=== PATIENT | female | born 1995 | race Caucasian/White ===

== ENCOUNTER 2022-01-28 23:33 | Emergency (ER) | payer OTHER, SELFPAY ==
[2022-01-28 23:44] VITALS: BP 88/67; PULSE 118; RESP 16; TEMP 36.5; O2SAT 97
--- NOTE | 2022-01-29 00:18 | CRLHL7_ITS ---
For Patients: As a result of the Century Cures Act, medical imaging exams and procedure reports are released immediately into your electronic medical record. You may view this report before your referring provider. If you have questions, please contact your health care provider. Indication: Vomiting. Technique: Abdomen 3 view. Comparison: None. Findings/Impression: Bowel: Diffuse gaseous distension of large bowel loops. Haustral markings are evident. Findings concerning for volvulus, possibly cecal. Soft tissues: No sign of free air. No sign of soft tissue mass. No suspicious calcifications. Percutaneous gastrostomy tube projects over the left abdomen. Bones: Unremarkable for age. Dictated by Lee Ruiz MD @ 01/29/2022 1:31:01 AM (Electronically Signed)
[2022-01-29] MEDS: ONDANSETRON ODT 4 MG TAB PO (00:30)
--- NOTE | 2022-01-29 00:49 | CRLHL7_ITS ---
For Patients: As a result of the Century Cures Act, medical imaging exams and procedure reports are released immediately into your electronic medical record. You may view this report before your referring provider. If you have questions, please contact your health care provider. INDICATION: History of volvulus, vomiting TECHNIQUE: CT abdomen and pelvis without contrast. COMPARISON: [facility] January 29, 2022 FINDINGS: Lower chest: Unremarkable. Liver: Unremarkable. Spleen: Unremarkable. Pancreas: Unremarkable. Gallbladder and bile ducts: Unremarkable. Adrenal glands: Normal left adrenal gland. The right adrenal gland is not seen. Kidneys: Unremarkable. No kidney or ureteral stones and no hydronephrosis. GI tract: The colon is difficult to follow due to lack of intravenous or oral contrast. The colon measures up to 7.7 cm in diameter in the left upper quadrant. The appendix is normal. Small bowel loops in the lower abdomen appear decompressed. Gastric tube tubing is appropriate in position. Large amount of feces in the colon. Vascular structures: Unremarkable. Lymph nodes: Unremarkable. Miscellaneous: Unremarkable. No free air or significant free fluid. Pelvic Organs: 2.6 x 2.5 cm cyst in the right adnexa, likely physiologic. Bones: Scoliosis. IMPRESSION: Volvulus cannot be excluded with this exam due to lack of intravenous or oral contrast. There is no free air pneumatosis. Small bowel loops in the lower abdomen appear decompressed. Recommend surgical consultation. Please note that all CT scans at this facility use dose modulation, iterative reconstruction, and/or weight-based dosing when appropriate to reduce radiation dose to as low as reasonably achievable. Dictated by April Argueta MD @ 01/29/2022 2:15:29 AM (Electronically Signed)
[2022-01-29 00:56] LABS: Gastric Occult Blood* POSITIVE
--- NOTE | 2022-01-29 01:51 | ED.GENADULT ---
HPI - General Adult General Chief complaint: Nausea/Vomiting Stated complaint: throwing up black bile has feeding tube Time Seen by Provider: 01/29/22 00:17 Source: family and RN notes reviewed Mode of arrival: wheelchair Limitations: other History of Present Illness HPI narrative: 26-year-old woman presenting with her mother care provider to the emergency department with concern of unusual vomitus. 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 Mom notes her stomach, I believe indicating on imaging, to been rather distended since that time. Has been otherwise generally healthy. She is nonverbal. Yesterday was noted to be generally unwell having vomited some white ?curly? emesis a couple of times. Today seemed fine until shortly before arrival in the emergency department when had vomitus of what I see here is coffee-ground type emesis. This also was released from her G-tube. Otherwise generally just does not seem to feel well. Not clear to what degree of pain she might be experiencing. Normal bowel movement today. No fever. G-tube button was also noted to be changed last night. On the medications include MiraLax and Osmolite nutritional supplement. Generally can take some oral liquids. Related Data Home Medications Medication Instructions Recorded Confirmed nutritional supplements 0.06 ea 01/28/22 gram-1.2 kcal/mL oral liquid (Osmolite 1.2 Abebe) polyethylene glycol 3350 17 17 g feeding tube DAILY PRN 01/28/22 01/28/22 gram/dose oral powder (Miralax) Allergies Allergy/AdvReac Type Severity Reaction Status Date / Time paper tape Allergy Intermediate Rash Uncoded 01/28/22 23:59 Review of Systems Status of ROS: Reports: 6 or more systems reviewed and unremarkable except as noted in History and below [facility] Medical History Cerebral palsy Gastrostomy tube in place Microcephalus Volvulus of stomach Social History Smoking Status: Never smoker Second hand tobacco smoke exposure: Yes How often do you have a drink containing alcohol: never How often do you have six or more drinks on one occasion: Never AUDIT-C Alcohol total score: 0 Non-prescribed substance use: denies use Exam Narrative: Exam Narrative: Nonverbal. Slim. Seated in wheelchair. Hunched forward a little bit. Does not appear to be any distress. Thick eyeglasses. Oropharynx is moist Breathing easily. Lungs appear to be clear. Heart rate is tachycardic. Regular rhythm. Abdomen with hyperactive bowel sounds. Large midline abdominal scar. Groans in apparent discomfort to palpation in the left mid abdomen. Tympanitic. G-tube in place. Noninflamed. [place] bag with what looks to be clear emesis other than floating coffee grounds. Extremities are slim, without edema. Partially contracted. Blood pressure is a little bit low which I presume to be near baseline though I do not have prior for comparison. Nursing notes this was particularly difficult to obtain. Const: Vital Signs, click to edit/add: Vital Signs - 24 hr 01/28/22 23:44 01/29/22 02:15 Temperature 97.7 F Pulse Rate [Left P ulse Oximeter] 118 H 116 H Respiratory Rate 16 18 Blood Pressure [Le ft Upper Arm] 88/67 L 135/84 Pulse Oximetry 97 96 Oxygen Delivery Me thod Room Air Room Air Documenting provider has reviewed patient's vital signs: yes Course Course Hospital Course: I did order gastroccult testing which was indeed positive. Was noted by mom to be rather difficult blood/IV collection as well as urine. I think answer is going to be more in the stomach. Abdominal x-rays ordered which by my read shows distended loops of bowel with G-tube in place. Radiology suspecting cecal volvulus. Prior to this over-read I had requested a CT scan already. Pending this read now. Has not appear to be in need of intervention for pain. Seemed to be more discomfort also demonstrating nausea. Given Zofran, morphine, fluids. Consultations Consultation #1: Discussed with our surgeon on-call. Would be best served elsewhere for cares, understandably. Did actually speak with [facility] surgery provider given anticipated challenges of placement. Sympathetic to our placement challenges here but simply to old for further care with him. Vital Signs Vital signs: Initial Vital Signs Temperature 97.7 F 01/28/22 23:44 Temperature Source Temporal Artery Scan 01/28/22 23:44 Pulse Rate 118 H 01/28/22 23:44 Respiratory Rate 16 01/28/22 23:44 Blood Pressure 88/67 L 01/28/22 23:44 Blood Pressure Mean 74 01/28/22 23:44 Blood Pressure Position Sitting 01/28/22 23:44 Pulse Oximetry 97 01/28/22 23:44 Oxygen Delivery Method 01/28/22 23:44 Vital Signs Temperature 97.7 F 01/28/22 23:44 Pulse Rate 118 H 01/28/22 23:44 Respiratory Rate 16 01/28/22 23:44 Blood Pressure 88/67 L 01/28/22 23:44 Pulse Oximetry 97 01/28/22 23:44 Oxygen Delivery Method 01/28/22 23:44 Temperature 97.7 F 01/28/22 23:44 Pulse Rate 101 H 01/29/22 04:56 Respiratory Rate 16 01/29/22 04:56 Blood Pressure 97/62 01/29/22 04:56 Pulse Oximetry 97 01/29/22 04:56 Oxygen Delivery Method 01/29/22 04:56 Medical Decision Making Lab Data Lab results reviewed: Yes I reviewed the patient's lab results Labs: Lab Results 01/29/22 01/29/22 Range/Units 00:18 00:42 Gastric Fluid pH 2.0 Gastric Occult Blood POSITIVE SARS-CoV-2 (PCR) Negative SARS-CoV-2 (Negative) Imaging Data CT scan - abdomen: Attestation: I have reviewed the pertinent imaging results. Radiologist's impression: Final Report: INDICATION: History of volvulus, vomiting TECHNIQUE: CT abdomen and pelvis without contrast. COMPARISON: [facility] January 29, 2022 FINDINGS: Lower chest: Unremarkable. Liver: Unremarkable. Spleen: Unremarkable. Pancreas: Unremarkable. Gallbladder and bile ducts: Unremarkable. Adrenal glands: Normal left adrenal gland. The right adrenal gland is not seen. Kidneys: Unremarkable. No kidney or ureteral stones and no hydronephrosis. GI tract: The colon is difficult to follow due to lack of intravenous or oral contrast. The colon measures up to 7.7 cm in diameter in the left upper quadrant. The appendix is normal. Small bowel loops in the lower abdomen appear decompressed. Gastric tube tubing is appropriate in position. Large amount of feces in the colon. Vascular structures: Unremarkable. Lymph nodes: Unremarkable. Miscellaneous: Unremarkable. No free air or significant free fluid. Pelvic Organs: 2.6 x 2.5 cm cyst in the right adnexa, likely physiologic. Bones: Scoliosis. IMPRESSION: Volvulus cannot be excluded with this exam due to lack of intravenous or oral contrast. There is no free air pneumatosis. Small bowel loops in the lower abdomen appear decompressed. Recommend surgical consultation. Abdominal x-ray: Attestation: I have reviewed the pertinent imaging results. Radiologist's impression: Final Report: Indication: Vomiting. Technique: Abdomen 3 view. Comparison: None. Findings/Impression: Bowel: Diffuse gaseous distension of large bowel loops. Haustral markings are evident. Findings concerning for volvulus, possibly cecal. Soft tissues: No sign of free air. No sign of soft tissue mass. No suspicious calcifications. Percutaneous gastrostomy tube projects over the left abdomen. Bones: Unremarkable for age. Discharge Plan Discharge Clinical Impression: Cecal volvulus, Abdominal pain Patient Disposition: Home w/ Parent or Adult Additional Instructions: [place] [facility] [place] We spoke with Dr. Galan who is accepting there. [place] assisted us on the phone. Prescriptions: No Action Osmolite 1.2 Abebe 0.06 gram-1.2 kcal/mL liquid polyethylene glycol 3350 [Miralax] 17 gram/dose powder 17 g feeding tube DAILY PRN Follow Up/Referrals: Provider,Not a Local [Primary Care Provider] - Stand Alone Forms: [facility] Info Instructions
[2022-01-29 01:59] LABS: SARS PCR* Negative SARS-CoV-2 (Negative)
[2022-01-29 02:15] VITALS: BP 135/84; PULSE 116; RESP 18; O2SAT 96
[2022-01-29] MEDS: MORPHINE 4 MG/ML INJ IVP (04:30)
[2022-01-29] MEDS: 0.9 % SODIUM CHLORIDE 500 ML 500 ML 6000 ML IV (04:30)
[2022-01-29] MEDS: ONDANSETRON 2 MG/ML inj 4 MG IVP (04:31)
[2022-01-29 04:56] VITALS: BP 97/62; PULSE 101; RESP 16; O2SAT 97
--- NOTE | 2022-01-29 05:09 | PC.NURSE ---
Report called to [facility] regarding patient transport. EMS paged for transport.
--- NOTE | 2022-01-29 05:25 | PC.NURSE ---
Report given to EMS. [place] [facility] Mom is riding with in ambulance.
== END 2022-01-29 05:35 | disposition home or self-care (01) ==
PROVIDERS: Emergency Provider Family Medicine
DX: K56.2 Volvulus (principal); R11.10 Vomiting, unspecified; Z93.1 Gastrostomy status
CPT/HCPCS: 74019; 74176; 83986; 87635; 96374; 96375; 99284; 99285; A9270; J2270; J2405; J7120

== ENCOUNTER 2022-01-29 05:14 | Outpatient (CLI) | payer OTHER, SELFPAY | END 2022-01-29 05:15 | disposition home or self-care (01) | LOC: AMB 02-10 08:52 | PROVIDERS: Visit Provider Internal Medicine | DX: K92.2 Gastrointestinal hemorrhage, unspecified (principal) | CPT/HCPCS: A0425; A0428 ==

== ENCOUNTER 2023-04-08 10:41 | Outpatient (CLI) | payer OTHER, SELFPAY | END 2023-04-08 10:42 | disposition home or self-care (01) | PROVIDERS: PCP Nurse Practitioner Family; Visit Provider Nurse Practitioner Family | DX: Z00.00 Encounter for general adult medical examination without abnormal findings (principal); R79.89 Other specified abnormal findings of blood chemistry; K59.00 Constipation, unspecified; Z13.0 Encounter for screening for diseases of the blood and blood-forming organs and certain disorders involving the immune mechanism; Z13.228 Encounter for screening for other metabolic disorders | CPT/HCPCS: 80053; 84443; 85025 ==

== ENCOUNTER 2023-08-23 08:49 | Outpatient (CLI) | payer OTHER, SELFPAY | END 2023-08-23 08:50 | disposition home or self-care (01) | LOC: KYNREF 08:50 | PROVIDERS: PCP Nurse Practitioner Family; Visit Provider Nurse Practitioner Family | DX: R05.1 Acute cough (principal) | CPT/HCPCS: 85025 ==

== ENCOUNTER 2024-11-06 13:46 | Outpatient (CLI) | payer OTHER, SELFPAY ==
[2024-11-06 22:22] LABS: SARS PCR* Negative SARS-CoV-2 (Negative)
== END 2024-11-06 13:47 | disposition home or self-care (01) ==
PROVIDERS: PCP Nurse Practitioner Family; Visit Provider Nurse Practitioner Family
DX: R05.9 Cough, unspecified (principal); R10.9 Unspecified abdominal pain; R17 Unspecified jaundice
CPT/HCPCS: 80053; 82150; 83690; 85025; 87635

== ENCOUNTER 2024-11-23 11:06 | Outpatient (CLI) | payer OTHER, SELFPAY | END 2024-11-23 11:07 | disposition home or self-care (01) | PROVIDERS: PCP Nurse Practitioner Family; Visit Provider Nurse Practitioner Family | DX: R79.89 Other specified abnormal findings of blood chemistry (principal); Z09 Encounter for follow-up examination after completed treatment for conditions other than malignant neoplasm | CPT/HCPCS: 84443; 85025 ==